=== PATIENT | female | born 1965 | race Two or more races ===

== ENCOUNTER 2018-06-29 18:33 | Inpatient (IN) | payer MEDICAID ==
[~2018-06-29] VITALS: Ht 162.6 cm; Wt 77.6 kg
[2018-06-29] MEDS: CEFTRIAXONE 1 G in IV DEXTROSE 5% 50 ML IV ONE (00:14)
[2018-06-29] MEDS ORDERED: KETOROLAC TROMETHAMINE 15 MG INJ IV ONE (19:00)
[2018-06-29] MEDS ORDERED: ONDANSETRON 4 MG/2 ML VIAL IV ONE (19:00)
[2018-06-29] MEDS ORDERED: PANTOPRAZOLE SODIUM 40 MG VIAL IV ONE (19:00)
[2018-06-29] MEDS ORDERED: IV NORMAL SALINE 1000 ML BAG IV ONE ×2 (19:00→21:15)
[2018-06-29 19:11] LABS: BASOPHILS % (AUTO) 0.7 % (0.0-2.0); EOSINOPHILS % (AUTO) 0.4 % (0.0-7.0); HEMATOCRIT 36.8 % (31.2-41.9); HEMOGLOBIN 12.8 g/dL (10.9-14.3); LYMPHOCYTES # (AUTO) 1.6 K/uL (20.0-40.0); LYMPHOCYTES % (AUTO) 25.4 % (20.5-51.5); MEAN CORPUSCULAR HEMOGLOBIN 30.5 uug (24.7-32.8); MEAN CORPUSCULAR HGB CONC 35 g/dL (32.3-35.6); MEAN CORPUSCULAR VOLUME 88.1 fL (75.5-95.3); MONOCYTES # (AUTO) 0.4 K/uL (2.0-10.0); MONOCYTES % (AUTO) 5.9 % (0.0-11.0); NEUTROPHILS # (AUTO) 4.3 K/uL (1.8-8.9); NEUTROPHILS % (AUTO) 67.6 % (38.5-71.5); PLATELET COUNT (AUTO) 326 K/uL (179-408); RED BLOOD CELL COUNT(AUTO) 4.18 MIL/uL (3.63-4.92); WHITE BLOOD COUNT (AUTO) 6.3 K/uL (3.8-11.8)
[2018-06-29] MEDS ORDERED: KETOROLAC TROMETHAMINE 30 MG INJ ONE (19:14)
[2018-06-29] MEDS ORDERED: ONDANSETRON 4 MG/2 ML VIAL ONE (19:14)
--- NOTE | 2018-06-29 19:14 | NUR ---
PT IS IN ROOM #1B. DR PACK EVALUATED THE PT.
[2018-06-29] MEDS ORDERED: PANTOPRAZOLE SODIUM 40 MG VIAL ONE (19:15)
--- NOTE | 2018-06-29 19:15 | NUR ---
PATIENT OBSERVED TO BE ALERT AND ORIENTED X 3, NEPALI SPEAKING ONLY. FAMILY AT BEDSIDE.
[2018-06-29 19:22] LABS: BILIRUBIN,DIRECT 0.7 mg/dL (0.0-0.2); BILIRUBIN,TOTAL 1.1 mg/dL (0.2-1.0); CREATININE 0.8 mg/dL (0.6-1.3); POTASSIUM 3.6 mmol/L (3.5-5.1); TOTAL PROTEIN, SERUM 7.7 g/dL (6.4-8.2)
[2018-06-29] MEDS ORDERED: MORPHINE SULFATE 2 MG/1 ML DISP.SYRIN IV ONE (19:30)
[2018-06-29] MEDS ORDERED: MORPHINE SULFATE 2 MG/1 ML DISP.SYRIN ONE (19:39)
[2018-06-29] MEDS ORDERED: NORMAL SALINE FLUSH 10 ML DISP.SYRIN ONE (21:24)
[2018-06-29] MEDS ORDERED: SWABABLE VALVE TRANSFER SET EA MC ONE (21:24)
[2018-06-29] MEDS ORDERED: IOHEXOL 300MG/ML 100 ML INFUS..BTL ONE (21:25)
[2018-06-29] MEDS ORDERED: IV NORMAL SALINE 250 ML IV ONE (21:25)
[2018-06-29] MEDS ORDERED: METRONIDAZOLE 500 MG/NS 100 ML PIGGYBACK IV ONE (23:15)
[2018-06-29] MEDS ORDERED: CEFTRIAXONE 1 G VIAL ONE (23:30)
[2018-06-29] MEDS ORDERED: METRONIDAZOLE 500 MG/NS 100ML 100 ML IV ONE (23:31)
[2018-06-30] MEDS: CEFTRIAXONE 1 G in IV DEXTROSE 5% 50 ML IV ONE (00:14)
--- NOTE | 2018-06-30 00:22 | NUR ---
EPIC PAGED FOR PANEL CALL.
[2018-06-30] MEDS ORDERED: HYDROCODONE/APAP 5-325MG TABLET PO PRN (00:45)
[2018-06-30] MEDS ORDERED: MORPHINE SULFATE 4 MG/1 ML DISP.SYRIN IV PRN (00:45)
[2018-06-30] MEDS ORDERED: PIPERACILLIN/TAZOBACTAM/D5W 50 ML IV SCH (00:45)
[2018-06-30] MEDS ORDERED: ONDANSETRON 4 MG/2 ML VIAL IV PRN (00:45)
[2018-06-30] MEDS ORDERED: MAGNESIUM HYDROXIDE 30 ML LIQUID UDC PO PRN (00:45)
[2018-06-30] MEDS ORDERED: ACETAMINOPHEN 325 MG TABLET PO PRN (00:45)
[2018-06-30] MEDS ORDERED: Z GUARD REMEDY PASTE 57 GM TUBE TOP PRN (00:45)
[2018-06-30] MEDS ORDERED: PIPERACILLIN/TAZOBACTAM/D5W 50 ML IV ONE ×2 (01:30→03:09)
--- NOTE | 2018-06-30 01:40 | NUR ---
Pt. admitted to [facility] , under care of Dr. Cummins Belongs List completed
[2018-06-30 01:45] VITALS: BP 118/79
--- NOTE | 2018-06-30 01:45 | NUR ---
RECEIVED PT FROM ER VIA WHEELCHAIR. DX; CHOLECYSTITIS UNDER THE CARE OR DR. BERGMAN. PT SHOWS NO SIGNS OF ACUTE DISTRESS. BELONGING LIST DONE. ADMISSION PROCESS AND CARE PLAN INITIATED. DETENTION ASSESSMENT DONE.SAFETY AND COMFORT PROVIDED. ALL NEEDS ARE MET.WILL CONTINUE TO MONITOR.
[2018-06-30 04:00] VITALS: BP 107/63
[2018-06-30 06:13] LABS: EOSINOPHILS # (AUTO) 0.1 K/uL (0.0-0.7); EOSINOPHILS % (AUTO) 1.6 % (0.0-7.0); HEMATOCRIT 36.3 % (31.2-41.9); HEMOGLOBIN 12.5 g/dL (10.9-14.3); LYMPHOCYTES % (AUTO) 41.8 % (20.5-51.5); MEAN CORPUSCULAR HEMOGLOBIN 30.7 uug (24.7-32.8); MEAN CORPUSCULAR HGB CONC 34 g/dL (32.3-35.6); MEAN CORPUSCULAR VOLUME 89.4 fL (75.5-95.3); MONOCYTES # (AUTO) 0.3 K/uL (2.0-10.0); MONOCYTES % (AUTO) 6.7 % (0.0-11.0); NEUTROPHILS # (AUTO) 2.3 K/uL (1.8-8.9); NEUTROPHILS % (AUTO) 48.9 % (38.5-71.5); PLATELET COUNT (AUTO) 291 K/uL (179-408); RED BLOOD CELL COUNT(AUTO) 4.06 MIL/uL (3.63-4.92); WHITE BLOOD COUNT (AUTO) 4.7 K/uL (3.8-11.8)
--- NOTE | 2018-06-30 06:22 | NUR ---
PT SLEPT THROUGHOUT THE SHIFT. PT SHOWS NO SIGNS OF DISTRESS. IV INTACT. PRESCRIBED MEDICATION GIVEN AND PT TOLERATED IT WELL.SAFETY AND COMFORT PROVIDED. ALL NEEDS ARE MET. WILL ENDORSE ACCORDINGLY TO INCOMING NURSE FOR CONTINUITY OF CARE.
[2018-06-30 06:43] LABS: CREATININE 0.7 mg/dL (0.6-1.3); PHOSPHOROUS 3.9 mg/dL (2.5-4.9); POTASSIUM 3.6 mmol/L (3.5-5.1)
[2018-06-30] MEDS: PIPERACILLIN/TAZOBACTAM/D5W 3.375 G in PREMIXED 1 EACH IV SCH ×2 (11:07→19:00)
[2018-06-30 11:47] VITALS: BP 128/78
[2018-06-30 15:47] VITALS: BP 141/89
[2018-06-30 22:00] VITALS: BP 139/82
--- NOTE | 2018-06-30 22:10 | NUR ---
RECEIVED PT VIA [facility] BY ROSALBA Jordan - (REJI). PT CAME FROM [facility] FOR [facility] AND [facility]. PT STABLE IN NO ACUTE DISTRESS. IV INTACT. FAMILY AT BEDSIDE.SAFETY AND COMFORT PROVIDED. WILL CONTINUE TO MONITOR.
--- NOTE | 2018-06-30 22:50 | NUR ---
DR. RESENDIZ CALLED AND ORDERED CLEAR LIQUID DIET FOR THE PT AND NPO AFTER MIDNIGHT. PT STABLE. IN NO ACUTE DISTRESS. WILL CONTINUE TO MONITOR.
[2018-07-01] MEDS: PIPERACILLIN/TAZOBACTAM/D5W 3.375 G in PREMIXED 1 EACH IV SCH ×2 (02:22→11:19)
[2018-07-01 04:58] VITALS: BP 122/79
--- NOTE | 2018-07-01 05:58 | NUR ---
PT COMPLAIN OF HEADACHE 11/08. GAVE TYLENOL. PT VITAL SIGNS WNL. WILL CONTINUE TO MONITOR.
--- NOTE | 2018-07-01 06:28 | NUR ---
PT SLEPT THROUGHOUT THE SHIFT. PT SHOWS NO SIGNS OF ACUTE DISTRESS. IV INTACT.PT HEADACHE RESOLVED. SAFETY AND COMFORT PROVIDED. ALL NEEDS ARE MET.PRESCRIBED MEDICATION GIVEN AND PT TOLERATED IT WELL. WILL ENDORSE ACCORDINGLY TO INCOMING NURSE FOR CONTINUITY OF CARE.
[2018-07-01 06:37] LABS: BASOPHILS # (AUTO) 0.1 K/uL (0.0-8.0); BASOPHILS % (AUTO) 1.1 % (0.0-2.0); EOSINOPHILS # (AUTO) 0.1 K/uL (0.0-0.7); HEMATOCRIT 37.5 % (31.2-41.9); HEMOGLOBIN 12.8 g/dL (10.9-14.3); LYMPHOCYTES # (AUTO) 1.8 K/uL (20.0-40.0); LYMPHOCYTES % (AUTO) 37.9 % (20.5-51.5); MEAN CORPUSCULAR HEMOGLOBIN 30.4 uug (24.7-32.8); MEAN CORPUSCULAR HGB CONC 34 g/dL (32.3-35.6); MEAN CORPUSCULAR VOLUME 89.2 fL (75.5-95.3); MONOCYTES # (AUTO) 0.4 K/uL (2.0-10.0); MONOCYTES % (AUTO) 7.6 % (0.0-11.0); NEUTROPHILS # (AUTO) 2.4 K/uL (1.8-8.9); NEUTROPHILS % (AUTO) 50.4 % (38.5-71.5); PLATELET COUNT (AUTO) 313 K/uL (179-408); WHITE BLOOD COUNT (AUTO) 4.7 K/uL (3.8-11.8)
[2018-07-01 06:48] LABS: CREATININE 0.7 mg/dL (0.6-1.3); POTASSIUM 3.3 mmol/L (3.5-5.1)
[2018-07-01 06:54] LABS: BILIRUBIN,TOTAL 3.2 mg/dL (0.2-1.0); MAGNESIUM 1.9 mg/dL (1.8-2.4); PHOSPHOROUS 4.3 mg/dL (2.5-4.9)
--- NOTE | 2018-07-01 07:30 | NUR ---
patient awake, oriented . denies abdominal pain. resting well.
--- NOTE | 2018-07-01 10:00 | NUR ---
discussed with patient for scheduled surgery today, verbalized understanding. had discussed yesterday with dr sebastian about possible surgery. spoke to daughter who will visit after 2 pm.
[2018-07-01] MEDS ORDERED: BUPIVACAINE 0.25% 30 ML VIAL ONE (10:01)
[2018-07-01 11:00] VITALS: BP 131/77
--- NOTE | 2018-07-01 11:10 | NUR ---
consent signed with compounding pharmacy technician via phone. sent to or as ordered
--- NOTE | 2018-07-01 11:11 | NUR ---
preop and post op discussion and expectation provided with is manager, pt verbalized understanding
[2018-07-01] MEDS ORDERED: FENTANYL CITRATE 100 MCG/2 ML AMPUL ONE ×3 (11:28→13:51)
[2018-07-01] MEDS ORDERED: MIDAZOLAM HCL 2 MG/2 ML VIAL ONE (11:29)
[2018-07-01] MEDS ORDERED: ROCURONIUM BROMIDE 50 MG/5 ML VIAL ONE (11:29)
[2018-07-01] MEDS ORDERED: IV D5W-0.45% NS +20 KCL 1,000 ML IV ONE (13:16)
[2018-07-01] MEDS ORDERED: ONDANSETRON 4 MG/2 ML VIAL ONE (13:52)
[2018-07-01] MEDS ORDERED: POTASSIUM CHLORIDE 20 MEQ in IV D5 1/2 NS 1000 ML 1,000 ML IV PRN (14:00)
[2018-07-01] MEDS ORDERED: MORPHINE SULFATE 4 MG/1 ML DISP.SYRIN IV PRN (14:00)
[2018-07-01] MEDS ORDERED: ZOLPIDEM 5 MG TABLET PO PRN (14:00)
[2018-07-01] MEDS ORDERED: MORPHINE SULFATE 2 MG/1 ML DISP.SYRIN IV PRN (14:00)
--- NOTE | 2018-07-01 14:40 | NUR ---
received from recovery room, aware alert. denies acute pain. incision with small amount of blood from delores drain with small amount of blood in it. other bandaids x3 clean and dry. iv fluid infusing well right antecubital # 18. post op discussion with son in law, karla and daughter , shira at bedside.need to ambulate, turn , take deep breathes incentive spirometry. fluids provided as requested.
[2018-07-01 14:54] VITALS: BP 135/81
[2018-07-01 15:15] VITALS: BP 130/80
[2018-07-01 15:30] VITALS: BP 131/71
--- NOTE | 2018-07-01 16:30 | NUR ---
family visit, supportive of patient care. reinforced ambulation ,fluid intake, mobility. reposition to left side with pillow support, felt better. teds stocking and compression pump on use
[2018-07-01] MEDS ORDERED: KETOROLAC TROMETHAMINE 30 MG INJ IM ONE (17:24)
[2018-07-01] MEDS ORDERED: IV LACTATED RINGERS SOLUTION 1,000 ML BAG IV ONE (17:24)
[2018-07-01] MEDS ORDERED: LIDOCAINE-MPF 2% 5 ML VIAL MC ONE (17:24)
[2018-07-01] MEDS ORDERED: GLYCOPYRROLATE 0.2 MG/ML VIAL MC ONE (17:24)
[2018-07-01] MEDS ORDERED: DEXAMETHASONE SOD PHOSPHATE 4 MG INJ IV ONE (17:24)
[2018-07-01] MEDS ORDERED: SEVOFLURANE 250 ML BOTTLE IH ONE (17:24)
[2018-07-01] MEDS ORDERED: NEOSTIGMINE METHYLSULFATE 10 MG/10 ML VIAL IV ONE (17:24)
[2018-07-01] MEDS ORDERED: PROPOFOL 200 MG/20 ML BOTTLE IV ONE (17:24)
[2018-07-01] MEDS ORDERED: ONDANSETRON 4 MG/2 ML VIAL IV ONE (17:24)
--- NOTE | 2018-07-01 18:22 | NUR ---
denies pain or nausea, had dinner. tolerated juice and crackers post recovery room. dressing unchanged. delores drain 60 ml sanguinous fluid. Addendum: 07/01/18 at 1825 by IESHA MARSHALL RN refused to walk now, enc to walk tonight, verbalized understanding and agreed
--- NOTE | 2018-07-01 19:30 | NUR ---
PT WAS RECEIVED IN BED , AWAKE/ ALERT. IN NO ACUTE SIGNS OF DISTRESS. FAMILY AT BEDSIDE. S/P LAP CHOLECYSTECTOMY, TISH DRAIN INTACT, SANGUINOUS FLUID.DRESSING INTACT. TAMICA HOSE IN PLACE. PT WAS ENCOURAGED TO AMBULATE. ENCOURAGE TO USE INCENTIVE SPIROMETER. IV FLUID INFUSING. WILL CONTINUE TO MONITOR.
[2018-07-01 20:00] VITALS: BP 96/56
[2018-07-01] MEDS: CEFAZOLIN 1 G in PREMIXED 1 EACH IV SCH (20:11)
[2018-07-02 03:35] VITALS: BP 149/74
[2018-07-02] MEDS: CEFAZOLIN 1 G in PREMIXED 1 EACH IV SCH ×2 (04:19→12:52)
--- NOTE | 2018-07-02 04:54 | NUR ---
PT AMBULATING IN THE HALLWAY SEVERAL TIMES LAST NIGHT, HAS BEEN USING INCENTIVE SPIROMETER. PAIN MED GIVEN FOR INCISION SITE PAIN. NO C/O OF N/V.
[2018-07-02 06:38] LABS: BASOPHILS % (AUTO) 0.2 % (0.0-2.0); EOSINOPHILS % (AUTO) 0.1 % (0.0-7.0); HEMATOCRIT 27.9 % (31.2-41.9); HEMOGLOBIN 9.6 g/dL (10.9-14.3); LYMPHOCYTES # (AUTO) 1.9 K/uL (20.0-40.0); LYMPHOCYTES % (AUTO) 23.8 % (20.5-51.5); MEAN CORPUSCULAR HEMOGLOBIN 30.8 uug (24.7-32.8); MEAN CORPUSCULAR HGB CONC 35 g/dL (32.3-35.6); MEAN CORPUSCULAR VOLUME 89.3 fL (75.5-95.3); MONOCYTES # (AUTO) 0.6 K/uL (2.0-10.0); MONOCYTES % (AUTO) 7.7 % (0.0-11.0); NEUTROPHILS # (AUTO) 5.3 K/uL (1.8-8.9); NEUTROPHILS % (AUTO) 68.2 % (38.5-71.5); PLATELET COUNT (AUTO) 259 K/uL (179-408); RED BLOOD CELL COUNT(AUTO) 3.12 MIL/uL (3.63-4.92); WHITE BLOOD COUNT (AUTO) 7.8 K/uL (3.8-11.8)
[2018-07-02 06:51] LABS: BILIRUBIN,TOTAL 1.3 mg/dL (0.2-1.0); CREATININE 0.8 mg/dL (0.6-1.3); MAGNESIUM 1.8 mg/dL (1.8-2.4); PHOSPHOROUS 3.6 mg/dL (2.5-4.9); POTASSIUM 3.4 mmol/L (3.5-5.1); TOTAL PROTEIN, SERUM 6.3 g/dL (6.4-8.2)
--- NOTE | 2018-07-02 07:30 | NUR ---
on bed ,resting well.no distress noted
--- NOTE | 2018-07-02 10:00 | NUR ---
dr sebastian in , saw patient, delores drain removed, tolerated well by patient. diony intact dressing applied.
[2018-07-02] MEDS ORDERED: POTASSIUM CHLORIDE 50 ML IV SCH (10:15)
--- NOTE | 2018-07-02 11:00 | NUR ---
ambulated in hallway x 2, tolerated well, passing gas
[2018-07-02 12:07] VITALS: BP 121/72
--- NOTE | 2018-07-02 12:30 | NUR ---
daughter and son in law in, , ambulated with patient x 2, tolerated well by patient.
[2018-07-02] MEDS ORDERED: HYDR-3326 PO (12:46)
[2018-07-02] MEDS ORDERED: CEPH-570 PO (12:46)
--- NOTE | 2018-07-02 14:30 | NUR ---
patietn resting well. appetite good, denies nausea or vomiting, no abdominal pain
[2018-07-02 16:17] VITALS: BP 140/91
--- NOTE | 2018-07-02 17:25 | NUR ---
discharged instruction given , offered acquisition editor, prefer son in karla brice to interpret. left in stable condition, appreciative of care.
== END 2018-07-02 17:25 | disposition home or self-care (01) | DRG 263 ==
LOC: ER 18:35 → MEDSURG3 06-30 01:11
PROVIDERS: ADMIT Family Medicine; ATTEND Registered Nurse
PROC: 0FT44ZZ Resection of Gallbladder, Percutaneous Endoscopic Approach (ICD-10-PCS; principal; 2018-07-01)
DX: K80.00 Calculus of gallbladder with acute cholecystitis without obstruction (principal); D71 Functional disorders of polymorphonuclear neutrophils; K82.8 Other specified diseases of gallbladder; E66.9 Obesity, unspecified; K76.0 Fatty (change of) liver, not elsewhere classified; D62 Acute posthemorrhagic anemia; Z90.710 Acquired absence of both cervix and uterus; Z68.29 Body mass index [BMI] 29.0-29.9, adult; Z71.3 Dietary counseling and surveillance; K57.30 Diverticulosis of large intestine without perforation or abscess without bleeding; K29.70 Gastritis, unspecified, without bleeding
CPT/HCPCS: 36415; 71045; 74181; 78226; 83690; 83735; 84100; 85025; 93005; A4663; A9537; C9113; G0378; J0690; J0696; J1100; J1885; J2250; J2270; J2405; J2543; J2710; J3010; J3480; J3490; J7030; J7040; J7050; J7060; J7120; Q9967